=== PATIENT | male | born 1945 | race Caucasian/White ===

== ENCOUNTER 2021-06-14 16:13 | Emergency (ER) | payer MEDICARE ==
[~2021-06-14] VITALS: Ht 175.3 cm; Wt 75.0 kg
[2021-06-14] MEDS ORDERED: LIDOCAINE PATCH 55 % TOP (19:25)
[2021-06-14] MEDS ORDERED: FLEXERIL5 M1 PO (19:25)
[2021-06-14 20:10] VITALS: BP 145/72
== END 2021-06-14 20:15 | disposition home or self-care (01) ==
LOC: ED 16:13
DX: M50.30 Other cervical disc degeneration, unspecified cervical region (principal); R20.2 Paresthesia of skin; L98.8 Other specified disorders of the skin and subcutaneous tissue; I10 Essential (primary) hypertension; E78.00 Pure hypercholesterolemia, unspecified; K21.9 Gastro-esophageal reflux disease without esophagitis